=== PATIENT | female | born 1980 | race Caucasian/White ===

== ENCOUNTER 2021-12-17 08:16 | Emergency (ER) | payer SELFPAY | END 2021-12-17 10:25 | disposition home or self-care (01) | LOC: MADERS 08:16 | DX: H65.192 Other acute nonsuppurative otitis media, left ear (principal); Z79.899 Other long term (current) drug therapy | CPT/HCPCS: 99282 ==

== ENCOUNTER 2023-11-22 17:25 | Emergency (ER) | payer OTHER, SELFPAY ==
[2023-11-22] MEDS ORDERED: Orphenadrine Citrate 60 MG/2 ML VIAL ONE (18:38)
[2023-11-22] MEDS ORDERED: Ketorolac Tromethamine 30 MG (1 mL) VIAL ONE (18:38)
== END 2023-11-22 19:00 | disposition home or self-care (01) ==
LOC: MADERS 17:25
DX: S33.5XXA Sprain of ligaments of lumbar spine, initial encounter (principal); S43.402A Unspecified sprain of left shoulder joint, initial encounter; M47.816 Spondylosis without myelopathy or radiculopathy, lumbar region; I10 Essential (primary) hypertension; V49.9XXA Car occupant (driver) (passenger) injured in unspecified traffic accident, initial encounter
CPT/HCPCS: 71046; 72100; 74018; 96372; J1885; J2360

== ENCOUNTER 2024-01-27 17:27 | Emergency (ER) | payer SELFPAY ==
[2024-01-27] MEDS ORDERED: predniSONE 20 MG TAB ONE (18:06)
[2024-01-27] MEDS ORDERED: Morphine 10 MG/ML VIAL ONE (18:07)
== END 2024-01-27 18:15 | disposition home or self-care (01) ==
LOC: MADERS 17:27
DX: M54.31 Sciatica, right side (principal); I10 Essential (primary) hypertension
CPT/HCPCS: 96372; 99283; J2270; J7512

== ENCOUNTER 2024-06-16 18:39 | Emergency (ER) | payer OTHER, SELFPAY ==
[2024-06-16] MEDS ORDERED: Loratadine 10 MG TAB ONE (19:20)
[2024-06-16] MEDS ORDERED: predniSONE 10 MG TAB ONE (19:20)
[2024-06-16] MEDS ORDERED: predniSONE 20 MG TAB ONE ×2 (19:20→19:22)
== END 2024-06-16 19:30 | disposition home or self-care (01) ==
LOC: MADERS 18:39
DX: R21 Rash and other nonspecific skin eruption (principal); I10 Essential (primary) hypertension
CPT/HCPCS: 99282; J7512